=== PATIENT | male | born 1995 | race African-American/Black ===

== ENCOUNTER 2020-11-27 08:13 | Emergency (ER) | payer OTHER ==
[2020-11-27 08:24] VITALS: BMI 34.0
[2020-11-27] MEDS ORDERED: ACETAMINOPHEN INJECTION 100 ML IVPB ONE (08:25)
[2020-11-27] MEDS ORDERED: LIDOCAINE 5% TOPICAL PATCH ONE (08:32)
[2020-11-27] MEDS ORDERED: LIDOCAINE 5% TOPICAL PATCH TP ONE (09:05)
[2020-11-27] MEDS ORDERED: ACETAMINOPHEN 1000 MG/100 ML VIAL IVPB ONE (09:05)
[2020-11-27] MEDS ORDERED: SODIUM CHLORIDE 0.9% 500 ML INFUS.BAG IV ONE (09:06)
[2020-11-27 09:19] LABS: BASO % 0.2 % (0-2.0); HEMATOCRIT 45.9 % (35.4-49); LYMPH % 22.7 % (8-40); MCH 32.4 pg (25.7-33.7); MCHC 34.9 g/dl (32.0-35.9); MEAN CELL VOLUME 92.8 fl (80-96); MEAN PLT VOLUME 8.2 fl (7.5-11.1); NEUT % 74.1 % (42.8-82.8); PLATELET COUNT 342 10^3/uL (134-434); RBC 4.94 M/mm3 (4.00-5.60); RDW 13.8 % (11.9-15.9); WHITE BLOOD COUNT 10.6 K/mm3 (4.0-10.0)
[2020-11-27 09:25] LABS: CHLORIDE 108 mmol/L (98-107); INR 1.01 (0.83-1.09); PROTHROMBIN TIME (PATIENT) 11.3 SEC (9.7-13.0); SODIUM 142 mmol/L (136-145)
[2020-11-27 09:28] LABS: ACTIVATED PTT 27.8 SECONDS (25.2-36.5)
[2020-11-27 09:30] LABS: ALBUMIN 3.6 g/dl (3.4-5.0); ANION GAP 10 MMOL/L (8-16); BLOOD UREA NITROGEN 6.2 mg/dL (7-18); CALCIUM 8.5 mg/dL (8.5-10.1); CO2 24 mmol/L (21-32); GLUCOSE,RANDOM 165 mg/dL (74-106); MAGNESIUM 1.8 mg/dL (1.8-2.4)
[2020-11-27 09:34] LABS: BILIRUBIN,TOTAL 0.3 mg/dL (0.2-1); PHOSPHOROUS 3.6 mg/dL (2.5-4.9); SGOT/AST 67 U/L (15-37); SGPT/ALT 100 U/L (13-61)
[2020-11-27 09:35] LABS: ALK PHOS 86 U/L (45-117); TOT PROT 9.4 g/dl (6.4-8.2)
[2020-11-27] MEDS ORDERED: LACTATED RINGERS SOLUTION 1000 ML INFUS.BAG IV ONE (09:48)
[2020-11-27 14:20] VITALS: BP 120/72; PULSE 96
[2020-11-27 17:55] VITALS: TEMP 98.5
[2020-11-27] MEDS ORDERED: LIDOCAINE PATCH REMOVAL MC SCH (22:00)
== END 2020-11-27 14:20 | disposition short-term general hospital (02) ==
LOC: JER 08:13
PROC: 3E033NZ Introduction of Analgesics, Hypnotics, Sedatives into Peripheral Vein, Percutaneous Approach (ICD-10-PCS; principal; 2020-11-27)
DX: I71.01 Dissection of thoracic aorta (principal); V89.2XXA Person injured in unspecified motor-vehicle accident, traffic, initial encounter; Y92.9 Unspecified place or not applicable
CPT/HCPCS: 36415; 70450-TC; 71045-TC-FY; 71275-TC; 72125-TC; 72170-TC-FY; 73110-TC-RT-FY; 73130-TC-RT-FY; 74174-TC; 80053; 80307; 82550; 82553; 82962; 83690; 83735; 84100; 84484; 85025; 85610; 85730; 86850; 86900; 86901; 93005; 93010; 99285-25; C9803; J0131; Q9967; U0003; U0005